=== PATIENT | female | born 1995 | race Two or more races ===

== ENCOUNTER 2018-04-29 06:24 | Emergency (ER) | payer MEDICAID ==
[~2018-04-29] VITALS: Ht 165.1 cm; Wt 98.9 kg
[2018-04-29 06:41] VITALS: BP 135/85
[2018-04-29] MEDS ORDERED: FAMOTIDINE (10MG/ML) 2ML VL IV ONE (07:30)
[2018-04-29] MEDS ORDERED: METOCLOPRAMIDE HCL 5MG/ml INJ 2ml VIAL IV ONE (07:30)
[2018-04-29] MEDS ORDERED: KETOROLAC TROMETH 30 MG/ML 1ML VIAL IV ONE (07:30)
[2018-04-29] MEDS ORDERED: SODIUM CHLORIDE 0.9% 1,000 ML IV ONE (07:30)
[2018-04-29 07:37] LABS: Basophils # (auto) 0 uL; Basophils % (auto) 0.4 % (0.0-2.0); Eosinophils # (auto) 0.3 uL; Eosinophils % (auto) 2.8 % (0.0-7.0); Hematocrit 42.9 % (36.0-46.0); Hemoglobin 14.3 g/dL (12.2-16.2); Lymphocytes # (auto) 2.5 uL; Lymphocytes % (auto) 23.5 % (10.0-50.0); Mean Corpuscular Hemoglobin 28.2 pg (28.0-32.0); Mean Corpuscular Hgb Conc. 33.3 g/dL (32.0-36.0); Mean Corpuscular Volume 84.6 fL (80.0-100.0); Monocytes # (auto) 0.6 uL; Monocytes % (auto) 5.7 % (0.0-12.0); Neutrophils # (auto) 7.1 uL; Neutrophils % (auto) 67.6 % (37.0-80.0); Nucleated Red Blood Cells % 0.1 %; Platelet Count (auto) 439 10^3/uL (140-450); Red Blood Cells 5.07 10^6/uL (4.0-5.20); Red Cell Distribution Width 14.6 % (11.8-14.3); White Blood Cell 10.5 10^3/uL (4.4-10.8)
[2018-04-29 07:53] LABS: Albumin 3.5 g/dL (3.4-5.0); Bilirubin, Total 0.5 mg/dL (0.2-1.0); Calcium 8.5 mg/dL (8.5-10.1); Potassium 4.1 mmol/L (3.5-5.1); Total Protein 8.2 g/dL (6.4-8.2)
== END 2018-04-29 09:03 | disposition home or self-care (01) ==
LOC: ER 06:24
DX: K52.9 Noninfective gastroenteritis and colitis, unspecified (principal); I88.0 Nonspecific mesenteric lymphadenitis
CPT/HCPCS: 36415; 74176; 80053; 83690; 85025; 96361; 96374; 96375; 99285; J1885; J2765; J3490; J7030

== ENCOUNTER 2018-06-09 21:12 | Emergency (ER) | payer MEDICAID ==
[~2018-06-09] VITALS: Ht 165.1 cm; Wt 99.8 kg
[2018-06-09 22:36] VITALS: BP 130/83
[2018-06-09] MEDS ORDERED: HYDROcodone-ACET 10/325MG TAB PO ONE (23:30)
== END 2018-06-10 00:20 | disposition home or self-care (01) ==
LOC: ER 21:16
DX: M25.571 Pain in right ankle and joints of right foot (principal); S93.401A Sprain of unspecified ligament of right ankle, initial encounter; W20.8XXA Other cause of strike by thrown, projected or falling object, initial encounter; Y93.66 Activity, soccer; Y92.89 Other specified places as the place of occurrence of the external cause; Y99.8 Other external cause status
CPT/HCPCS: 73610

== ENCOUNTER 2019-10-30 07:56 | Emergency (ER) | payer MEDICAID ==
[~2019-10-30] VITALS: Ht 165.1 cm; Wt 99.8 kg
[2019-10-30 08:13] VITALS: BP 141/65
== END 2019-10-30 10:33 | disposition home or self-care (01) ==
LOC: ER 07:56
DX: T78.40XA Allergy, unspecified, initial encounter (principal); L50.0 Allergic urticaria; X58.XXXA Exposure to other specified factors, initial encounter; J06.9 Acute upper respiratory infection, unspecified

== ENCOUNTER → 2024-09-13 | Outpatient (CLI) | payer OTHER, MEDICAID ==
[2024-09-13 09:59] LABS: Basophils # (auto) 0 10 ^3/uL (0-0.2); Basophils % (auto) 0.3 % (0.0-2.0); Eosinophils # (auto) 0.2 10 ^3/uL (0-0.8); Hemoglobin 13.8 g/dL (12.2-16.2); Lymphocytes # (auto) 3.1 10 ^3/uL (0.4-5.4); Lymphocytes % (auto) 28.4 % (10.0-50.0); Mean Corpuscular Hemoglobin 28.9 pg (28.0-32.0); Mean Corpuscular Hgb Conc. 33.6 g/dL (32.0-36.0); Mean Corpuscular Volume 86.1 fL (80.0-100.0); Monocytes # (auto) 0.5 10 ^3/uL (0-1.3); Monocytes % (auto) 4.6 % (0.0-12.0); Neutrophils % (auto) 64.7 % (37.0-80.0); Platelet Count (auto) 426 10^3/uL (140-450); Red Blood Cells 4.77 10^6/uL (4.0-5.20); Red Cell Distribution Width 14.1 % (11.8-14.3); White Blood Cell 10.8 10^3/uL (4.4-10.8)
[2024-09-13 10:00] LABS: Urine Bacteria FEW /hpf (None Seen); Urine Blood 1+ /uL (Negative); Urine Clarity Turbid (Clear); Urine Color Light-Yellow (Yellow); Urine Mucus FEW (None Seen); Urine Protein, UAD Negative (Negative); Urine Specific Gravity 1.022 (1.001-1.035); Urine Urobilinogen Normal (Negative); Urine WBC 6 /hpf (0 - 5)
[2024-09-13 10:25] LABS: Alanine Aminotransferase 15 U/L (7-40); Alkaline Phosphatase 70 U/L (46-116); Anion Gap 7 (5-15); BUN/Creatinine Ratio 12.7 (10.0-20.0); Calcium 9.5 mg/dL (8.7-10.4); Carbon Dioxide 25 mmol/L (20-31); Glucose 92 mg/dL (74-106); LDL Cholesterol 93 mg/dL (< 100); Potassium 4.3 mmol/L (3.5-5.1); Sodium 139 mmol/L (136-145)
[2024-09-13 10:26] LABS: Albumin 4.2 g/dL (3.2-4.8); Aspartate Aminotransferase 15 U/L (13-40); Bilirubin, Total 0.4 mg/dL (0.2-1.0); Cholesterol 149 mg/dL (< 200); HDL Cholesterol 43 mg/dL (40-59); Total Protein 7.3 g/dL (5.7-8.2)
[2024-09-13 10:29] LABS: Free T4 (Free Thyroxine) 0.93 ng/dL (0.89-1.76)
[2024-09-13 10:44] LABS: Blood Urea Nitrogen 8 mg/dL (9-23); Chloride 107 mmol/L (98-107); Triglycerides 195 mg/dL (< 150)
[2024-09-13 11:03] LABS: Hepatitis B Core Total AB Negative (Negative)
[2024-09-13 12:13] LABS: Hepatitis A Total Antibody Positive (Negative); Hepatitis B Surface Antibody Positive (Negative); Hepatitis B Surface Antigen Negative (Negative); Hepatitis C Antibody Negative (Negative)
[2024-09-15 04:06] LABS: Chlamydia Trachomatis, NAA Negative (Negative); Neisseria gonorrhoeae, NAA Negative (Negative)
== END | disposition home or self-care (01) ==
LOC: LAB 09:12
PROVIDERS: ATTEND Student in an Organized Health Care Education/Training Program
DX: Z00.01 Encounter for general adult medical examination with abnormal findings (principal); Z11.3 Encounter for screening for infections with a predominantly sexual mode of transmission; E28.2 Polycystic ovarian syndrome; E55.9 Vitamin D deficiency, unspecified; E66.1 Drug-induced obesity
CPT/HCPCS: 36415; 80053; 80061; 81001; 82306; 82607; 83036; 84439; 84443; 85025; 86703; 86704; 86706; 86708; 86803; 87340

== ENCOUNTER 2025-04-26 06:33 | Outpatient (CLI) | payer OTHER, MEDICAID ==
[2025-04-26 07:19] LABS: Hematocrit 40.6 % (36.0-46.0); Hemoglobin 13.7 g/dL (12.2-16.2); Mean Corpuscular Hemoglobin 29.0 pg (28.0-32.0); Mean Corpuscular Volume 86.2 fL (80.0-100.0); Nucleated Red Blood Cells % 0.0 %
[2025-04-26 08:35] LABS: Alanine Aminotransferase 12 U/L (7-40); Albumin 4.3 g/dL (3.2-4.8); Alkaline Phosphatase 74 U/L (46-116); Anion Gap 9 (5-15); BUN/Creatinine Ratio 10.8 (10.0-20.0); Calcium 9.4 mg/dL (8.7-10.4); Carbon Dioxide 27 mmol/L (20-31); Chloride 106 mmol/L (98-107); Cholesterol 144 mg/dL (< 200); Glucose 88 mg/dL (74-106); Potassium 4.1 mmol/L (3.5-5.1); Sodium 142 mmol/L (136-145); Total Protein 6.9 g/dL (5.7-8.2); Triglycerides 125 mg/dL (< 150)
[2025-04-26 08:36] LABS: Bilirubin, Total 0.3 mg/dL (0.2-1.0); Blood Urea Nitrogen 8 mg/dL (9-23); HDL Cholesterol 38 mg/dL (40-59)
== END 2025-04-26 17:00 | disposition home or self-care (01) ==
LOC: LAB 06:33
PROVIDERS: ATTEND Nurse Practitioner Family
DX: E78.5 Hyperlipidemia, unspecified (principal); E55.9 Vitamin D deficiency, unspecified; R73.9 Hyperglycemia, unspecified
CPT/HCPCS: 36415; 80053; 80061; 82306; 83036; 84443; 85025

== ENCOUNTER 2025-08-13 06:23 | Outpatient (CLI) | payer OTHER, MEDICAID | END 2025-08-13 17:00 | disposition home or self-care (01) | LOC: LAB 06:23 | PROVIDERS: ATTEND Nurse Practitioner Family | DX: T78.19XA Other adverse food reactions, not elsewhere classified, initial encounter (principal); X58.XXXA Exposure to other specified factors, initial encounter | CPT/HCPCS: 82785; 86003 ==